=== PATIENT | male | born 1960 | race Hispanic/Latino ===

== ENCOUNTER 2022-07-06 18:33 | Emergency (ER) | payer BC ==
[~2022-07-06] VITALS: Ht 177.8 cm; Wt 116.6 kg
[2022-07-06 18:40] VITALS: BP 166/91
[2022-07-06] MEDS ORDERED: CEFAZOLIN SODIUM 1 GM VIAL IM SCH (19:00)
[2022-07-06] MEDS ORDERED: LIDOCAINE HCL 1% 20 ML VIAL INJ SCH (19:00)
[2022-07-06] MEDS ORDERED: TETANUS/DIPHTHERIA TOXOID [ADULT] 0.5 ML VIAL IM ONE (19:00)
[2022-07-06] MEDS ORDERED: ACETAMINOPHEN 500 MG TABLET PO ONE (20:00)
== END 2022-07-06 20:20 | disposition home or self-care (01) ==
LOC: EDH 18:33
DX: S51.811A Laceration without foreign body of right forearm, initial encounter (principal); W18.39XA Other fall on same level, initial encounter; Y93.89 Activity, other specified; Y92.89 Other specified places as the place of occurrence of the external cause; Y99.8 Other external cause status
CPT/HCPCS: 99284; 90714; 73090; 96372; 90471; 12002; J0690

== ENCOUNTER 2022-07-16 09:26 | Emergency (ER) | payer BC ==
[~2022-07-16] VITALS: Ht 177.8 cm; Wt 116.6 kg
[2022-07-16 11:58] VITALS: BP 143/74
== END 2022-07-16 12:05 | disposition home or self-care (01) ==
LOC: EDH 09:26
DX: S51.811D Laceration without foreign body of right forearm, subsequent encounter (principal); X58.XXXD Exposure to other specified factors, subsequent encounter
CPT/HCPCS: 99281